=== PATIENT | female | born 1965 | race African-American/Black ===

== ENCOUNTER → 2017-01-04 | Outpatient (CLI) | payer MEDICAID ==
[~2017-01-04] MED LIST: ALDACTONE 25MG25 MG PO; AMOXICOT500 MG PO; ATORVASTATIN 4040 MG PO; AUGMENTIN 875-1 EACH PO; CARVEDILOL 25MG25 MG PO; FUROSEMIDE40 MG PO; GABAPENTIN100 M1 PO; HABITROL21 MG/24 H TD; HYDROCODONE-APA1 TA2 PO; LIPITOR40 MG PO; LISINOPRIL 20MG20 MG PO; LISINOPRIL10 MG PO; LISINOPRIL40 MG PO; LOPRESSOR 50 MG50 MG PO; MELOXICAM7.5 MG PO; PREDNISONE 20MG20 MG PO; PROAIR HFA0.09 MG/AC IH; TESSALON PERLE100 M1 PO; TYLENOL W/CODEI1 TA2 PO; VISTARIL25 MG PO
[2017-01-04 18:57] LABS: BUN 20 mg/dL (7-18)
[2017-01-04 19:20] LABS: GFR (ESTIMATED) 47 ML/MIN (59-)
== END ==
LOC: LAB 15:07
PROVIDERS: Internal Medicine Cardiovascular Disease
DX: I10 Essential (primary) hypertension (principal)